=== PATIENT | female | born 1990 | race Caucasian/White ===

== ENCOUNTER 2017-01-08 13:41 | Emergency (ER) | payer OTHER | END 2017-01-08 14:38 | disposition home or self-care (01) | LOC: ER 13:41 | DX: J20.9 Acute bronchitis, unspecified (principal); F32.9 Major depressive disorder, single episode, unspecified; K21.9 Gastro-esophageal reflux disease without esophagitis; I10 Essential (primary) hypertension; E78.00 Pure hypercholesterolemia, unspecified; F17.210 Nicotine dependence, cigarettes, uncomplicated ==

== ENCOUNTER 2017-01-25 20:40 | Emergency (ER) | payer OTHER | END 2017-01-25 21:43 | disposition home or self-care (01) | LOC: ER 20:40 | DX: M54.42 Lumbago with sciatica, left side (principal); F32.9 Major depressive disorder, single episode, unspecified; K21.9 Gastro-esophageal reflux disease without esophagitis; I10 Essential (primary) hypertension; F17.210 Nicotine dependence, cigarettes, uncomplicated ==